=== PATIENT | female | born 1995 | race Two or more races ===

== ENCOUNTER 2017-05-14 01:11 | Emergency (ER) | payer SELFPAY ==
[~2017-05-14] VITALS: Ht 167.6 cm; Wt 63.5 kg
[2017-05-14 01:14] VITALS: BP 125/91
[2017-05-14] MEDS ORDERED: HALOPERIDOL LACTATE 5 MG/ML INJ VIAL ONE (03:28)
[2017-05-14] MEDS ORDERED: diphenhdrAMINE HCL 50 MG/1 ML VL ONE (03:28)
[2017-05-14] MEDS ORDERED: LORazepam 2MG/ML-1ML VIAL ONE (03:29)
[2017-05-14] MEDS ORDERED: HALOPERIDOL LACTATE 5 MG/ML INJ VIAL IM ONE (03:45)
[2017-05-14] MEDS ORDERED: LORazepam 2MG/ML-1ML VIAL IM ONE (03:45)
[2017-05-14] MEDS ORDERED: diphenhdrAMINE HCL 50 MG/1 ML VL IM ONE (03:45)
[2017-05-14] MEDS ORDERED: TETANUS-DIPTH-ACEL PERTUSSIS 0.5ML SYRG IM ONE (05:15)
[2017-05-14] MEDS ORDERED: cefTRIAXone SOD 1,000 MG VL IM ONE (05:15)
[2017-05-14] MEDS ORDERED: cefTRIAXone SOD 1,000 MG VL ONE (05:17)
== END 2017-05-14 07:20 ==
LOC: EDBD 01:11 → ER 01:11
DX: S01.01XA Laceration without foreign body of scalp, initial encounter (principal); X58.XXXA Exposure to other specified factors, initial encounter; Y93.89 Activity, other specified; Y92.89 Other specified places as the place of occurrence of the external cause; Y99.8 Other external cause status
CPT/HCPCS: 12001; 90715; 96372; 99284; J0696; J1200; J1630; J2060

== ENCOUNTER 2017-05-14 05:18 | Emergency (ER) | payer SELFPAY ==
[~2017-05-14] VITALS: Ht 167.6 cm; Wt 63.5 kg
[2017-05-14 05:24] VITALS: BP 148/103
[2017-05-26] MEDS ORDERED: cefTRIAXone SOD 1,000 MG VL IM ONE (06:15)
[2017-05-26] MEDS ORDERED: TETANUS-DIPTH-ACEL PERTUSSIS 0.5ML SYRG IM ONE (06:15)
== END 2017-05-14 06:03 ==
LOC: ER 05:18
DX: S01.01XA Laceration without foreign body of scalp, initial encounter (principal); Z53.21 Procedure and treatment not carried out due to patient leaving prior to being seen by health care provider; X58.XXXA Exposure to other specified factors, initial encounter; Y93.89 Activity, other specified; Y92.89 Other specified places as the place of occurrence of the external cause; Y99.8 Other external cause status